=== PATIENT | male | born 1985 | race Two or more races ===

== ENCOUNTER 2024-04-28 06:58 | Emergency (ER) | payer BC ==
[2024-04-28] MEDS: Sodium Chloride 0.9% 1,000 ML IV ONE ×3 (07:43→10:01)
[2024-04-28 07:49] LABS: BASE EXCESS VENOUS -3.4 (-2.0-3.0); PH,VENOUS 7.33 (7.31-7.41)
[2024-04-28 08:13] LABS: A/G RATIO 0.8 (0.9-1.6); ALBUMIN 3.3 g/dL (3.4-5.0); BILIRUBIN TOTAL 0.3 mg/dL (0.2-1.0); CALCIUM 8.6 mg/dL (8.5-10.1); CARBON DIOXIDE,CO2 22.9 mmol/L (21.0-32.0); CREATININE 1.9 mg/dL (0.8-1.3); EST CRCL DRUG DOSING (CG) 53.75 mL/min; POTASSIUM,K 3.4 mmol/L (3.5-5.1); PROTEIN TOTAL,TP 7.4 g/dL (6.4-8.2)
[2024-04-28] MEDS: Potassium Chloride 10% 20 MEQ/15 ML Soln 15 ML UD Cup PO ONE (08:47)
[2024-04-28] MEDS: Sodium Chloride 0.9% 10 ML Syringe FLUSH PRN (08:49)
[2024-04-28] MEDS: Sodium Chloride 0.9% 2.5 ML Syringe FLUSH PRN (08:50)
[2024-04-28] MEDS ORDERED: 50% Dextrose in Water 50 ML Syringe IVPUSH PRN ×2 (09:50→11:21)
[2024-04-28] MEDS ORDERED: Glucagon,Human Recombinant 1 MG Vial IM PRN ×2 (09:50→11:21)
[2024-04-28] MEDS: Insulin Regular, Human 100 Units/ML 10 ML Vial IVPUSH ONE ×2 (10:00→11:46)
== END 2024-04-28 13:36 ==
LOC: MW.ED 06:58
DX: E11.65 Type 2 diabetes mellitus with hyperglycemia (principal); Z79.84 Long term (current) use of oral hypoglycemic drugs; Z75.8 Other problems related to medical facilities and other health care
CPT/HCPCS: 36415; 80053; 82009; 82803; 82947; 83690; 96360; 96361; 99283; A9270; J1815; J3490; J7030

== ENCOUNTER 2024-05-01 21:53 | Emergency (ER) | payer BC ==
[2024-05-01 22:56] LABS: BASE EXCESS VENOUS 5.2 (-2.0-3.0); BASOPHILS ABSOLUTE AUTO 0.04 K/uL (0.00-0.20); BASOPHILS PERCENT AUTO 0.6 % (0.0-1.0); BICARBONATE,VENOUS 31 mEQ/mL (22-28); EOSINOPHILS ABSOLUTE AUTO 0.39 K/uL (0.00-0.45); EOSINOPHILS PERCENT AUTO 5.7 % (0.0-6.0); HEMATOCRIT 46.5 % (42.0-52.0); HEMOGLOBIN 16.4 g/dL (14.0-18.0); IMMATURE GRAN ABSOLUTE AUTO 0.01 K/uL (0.00-0.05); IMMATURE GRAN PERCENT AUTO 0.1 % (0.0-0.4); LYMPHOCYTES ABSOLUTE AUTO 2.16 K/uL (1.00-4.80); LYMPHOCYTES PERCENT AUTO 31.7 % (24.0-44.0); MEAN CORPUSCULAR HEMOGLOBIN 29.1 pg (28.0-32.0); MEAN CORPUSCULAR HGB CONC 35.3 g/dL (32.0-36.0); MEAN CORPUSCULAR VOLUME 82.6 fL (83.0-99.0); MEAN PLATELET VOLUME 12.3 fL (9.4-12.4); MONOCYTES ABSOLUTE AUTO 0.48 K/uL (0.00-0.80); NEUTROPHILS ABSOLUTE AUTO 3.74 K/uL (1.80-7.70); NEUTROPHILS PERCENT AUTO 54.9 % (41.0-71.0); PCO2 VENOUS 50 mmHG (41-51); PH,VENOUS 7.41 (7.31-7.41); PLATELET COUNT,PLT 235 K/uL (150-400); RED BLOOD CELL COUNT 5.63 M/uL (4.52-5.90); WHITE BLOOD CELL COUNT,WBC 6.82 K/uL (3.9-11.3)
[2024-05-01 22:58] LABS: PO2 VENOUS < 30 mmHG (35-45)
[2024-05-01] MEDS: Lactated Ringers 1,000 ML IV ONE ×2 (23:04→23:29)
[2024-05-01 23:25] LABS: LACTIC ACID 1.1 mmol/L (0.4-2.0)
[2024-05-01 23:32] LABS: APPEARANCE,URINE CLEAR; BILIRUBIN,URINE NEGATIVE (NEGATIVE); COLOR,URINE YELLOW; GLUCOSE,URINE >=1000 mg/dL (NEGATIVE); KETONES,URINE NEGATIVE (NEGATIVE); LEUKOCYTE ESTERASE,URINE NEGATIVE (NEGATIVE); NITRITE,URINE NEGATIVE (NEGATIVE); OCCULT BLOOD,URINE NEGATIVE (NEGATIVE); PROTEIN,URINE TRACE mg/dL (NEGATIVE); UROBILINOGEN,URINE 0.2 EU/dL (<2.0)
[2024-05-01 23:32] LABS: CALCIUM 8.8 mg/dL (8.5-10.1); CARBON DIOXIDE,CO2 30.2 mmol/L (21.0-32.0); CREATININE 1.9 mg/dL (0.8-1.3); EST CRCL DRUG DOSING (CG) 62.49 mL/min; POTASSIUM,K 3.6 mmol/L (3.5-5.1)
[2024-05-01 23:37] LABS: BACTERIA,URINE NOT SEEN (NEGATIVE); EPITHELIAL CELLS,URINE NOT SEEN (NONE-FEW); RBC,URINE 0-1 (0-2/HPF); WBC,URINE NONE SEEN (0-5/HPF)
[2024-05-02] MEDS: Insulin Aspart 100 Units/ML 3 ML Pen SUBCUT STA ×2 (01:34→02:50)
[2024-05-02] MEDS: Lactated Ringers 1,000 ML IV ONE (02:50)
== END 2024-05-02 03:07 | disposition left against medical advice (07) ==
LOC: MW.ED 21:53
DX: E11.65 Type 2 diabetes mellitus with hyperglycemia (principal); F17.210 Nicotine dependence, cigarettes, uncomplicated; Z79.84 Long term (current) use of oral hypoglycemic drugs
CPT/HCPCS: 36415; 80048; 81001; 82009; 82803; 82947; 83605; 85025; 96360; 99285; J1815; J7120